=== PATIENT | female | born 1960 | race Caucasian/White ===

== ENCOUNTER 2022-12-12 00:03 | Emergency (ER) | payer MEDICARE, OTHER ==
[~2022-12-12] VITALS: Ht 160 cm; Wt 86.2 kg
--- NOTE | 2022-12-12 00:09 | NUR ---
Patient resting in bed, A/Ox4, chest rise and fall symmetrical, no s/s of distress, on monitor.
--- NOTE | 2022-12-12 00:09 | NUR ---
Pt to bed 2
[2022-12-12 00:52] LABS: BASOPHILS % (AUTO) 0.6 % (0.0-2.0); EOSINOPHILS # (AUTO) 0.1 K/uL (0-0.4); EOSINOPHILS % (AUTO) 1.3 % (0.0-4.0); HEMOGLOBIN 13.6 g/dL (12.0-16.0); LYMPHOCYTES # (AUTO) 0.5 K/uL (2.5-16.5); LYMPHOCYTES % (AUTO) 6.9 % (20.5-51.1); MEAN CORPUSCULAR HEMOGLOBIN 28 pg (27-31); MEAN CORPUSCULAR HGB CONC 32 g/dL (33-37); MONOCYTES # (AUTO) 0.6 K/uL (0.8-1.0); MONOCYTES % (AUTO) 8.2 % (1.7-9.3); NEUTROPHILS # (AUTO) 6.4 K/uL (1.8-7.7); PLATELET COUNT (AUTO) 99 K/uL (140-450); RED BLOOD CELL COUNT(AUTO) 4.94 MIL/uL (4.20-5.40); RED CELL DISTRIBUTION WIDTH 16.1 % (11.6-13.7); WHITE BLOOD COUNT (AUTO) 7.7 K/uL (4.8-10.8)
[2022-12-12 01:44] LABS: POTASSIUM 3.8 mmol/L (3.5-5.1); SODIUM SERUM 132 mmol/L (136-145)
[2022-12-12 01:45] LABS: ANION GAP 11.6 (8-16); CARBON DIOXIDE 33.2 mmol/L (21-32); CHLORIDE 91 mmol/L (98-107); CREATININE 3.8 mg/dL (0.6-1.3); GFR ARICAN-AMERICAN 15 mL/min (>90); GLUCOSE 141 mg/dL (74-106); UREA NITROGEN, BLOOD 12 mg/dL (7-18)
[2022-12-12 01:46] LABS: ALBUMIN 2.7 g/dL (3.4-5.0); ASPARTATE AMINOTRANSFERASE 16 U/L (15-37); LIPASE 34 U/L (73-393)
[2022-12-12 01:48] LABS: TOTAL BILIRUBIN 0.8 mg/dL (0.0-1.0)
[2022-12-12] MEDS ORDERED: INSU3SUS16 SC (02:07)
[2022-12-12] MEDS ORDERED: SERT50TA PO (02:08)
[2022-12-12] MEDS ORDERED: PANT40EC PO (02:09)
[2022-12-12] MEDS ORDERED: diphenhydrAMINE 50 MG/ML VIAL IVP ONE (02:20)
--- NOTE | 2022-12-12 02:30 | NUR ---
Patient resting in bed, A/Ox4, chest rise and fall symmetrical, no c/o pain or s/s of distress, on monitor.
[2022-12-12] MEDS ORDERED: HYDR25CA1 PO (02:40)
[2022-12-12] MEDS ORDERED: ACETAMINOPHEN 325 MG TAB PO ONE (02:55)
[2022-12-12] MEDS ORDERED: cefTRIAXone 1,000 MG VIAL ONE (04:03)
--- NOTE | 2022-12-12 04:22 | NUR ---
Patient resting in bed, A/Ox4, chest rise and fall symmetrical, no c/o pain or s/s of distress, on monitor.
[2022-12-12 06:30] VITALS: BP 115/43
--- NOTE | 2022-12-12 06:40 | NUR ---
Patient resting in bed, A/Ox4, chest rise and fall symmetrical, no s/s of distress, on monitor.
[2022-12-12] MEDS ORDERED: ACETAMINOPHEN/CODEINE 300/30MG 1 TAB PO ONE (06:50)
--- NOTE | 2022-12-12 07:27 | NUR ---
Patient to be transferred to [facility]. Is being transferred due to Insurance. Receiving facility has accepting physician and available space. ER physician has signed transfer form. Patient or responsible libertarian has agreed to transfer and signed form. Patient belongings inventoried and will be sent with patient. Copy of nursing notes, lab reports, EKG, Physicians Orders and X-rays to be sent with patient. Report called to Gabriella FLORIAN at receiving facility. [facility] ambulance service has been called for transfer. ETA is 0730 hrs.
--- NOTE | 2022-12-12 07:29 | NUR ---
Change of shift report given to AM shift nurse Rohith FLORIAN. Rohith FLORIAN verbalized understanding of report, no further questions.
--- NOTE | 2022-12-12 07:38 | NUR ---
[facility] AT BEDSIDE FOR TRANSPORT
== END 2022-12-12 07:43 | disposition short-term general hospital (02) ==
LOC: MED 00:03
DX: R09.02 Hypoxemia (principal); Z20.822 Contact with and (suspected) exposure to COVID-19; J18.9 Pneumonia, unspecified organism; N18.6 End stage renal disease; Z99.2 Dependence on renal dialysis; Z79.899 Other long term (current) drug therapy
CPT/HCPCS: 36415; 36600; 71045; 80053; 82803; 83605; 83690; 83880; 84484; 85025; 87040; 87426; 93005; 94760; 96365; 96375; 99285; J0696; J1200